=== PATIENT | female | born 1990 | race African-American/Black ===

== ENCOUNTER 2017-02-09 22:47 | Emergency (ER) | payer SELFPAY ==
[~2017-02-09] VITALS: Ht 160 cm; Wt 72.7 kg
[~2017-02-09 22:47] MED LIST: ALBU17AE27 IH
[2017-02-09] MEDS ORDERED: IPRATROPIUM BROMIDE 0.5 MG/2.5 ML NEB SOLUTION NEB ONE (23:00)
[2017-02-09] MEDS ORDERED: ALBUTEROL SULFATE 5 MG/ML 20 ML NEB SOLN [BULK] NEB ONE (23:00)
[2017-02-09] MEDS ORDERED: 0.9% SODIUM CHLORIDE 5 ML NEB SOLUTION NEB ONE (23:01)
[2017-02-09 23:26] VITALS: BP 122/89
[2017-02-09] MEDS ORDERED: PredniSONE 20 MG TABLET PO ONE (23:45)
[2017-02-10] MEDS ORDERED: ALBUTEROL SULFATE HFA 90 MCG/PUFF 8 GM INHALER IH ONE (00:15)
== END 2017-02-10 00:09 | disposition home or self-care (01) ==
LOC: EMS 22:49
DX: J45.901 Unspecified asthma with (acute) exacerbation (principal); F17.210 Nicotine dependence, cigarettes, uncomplicated; F15.90 Other stimulant use, unspecified, uncomplicated; Z88.1 Allergy status to other antibiotic agents
CPT/HCPCS: 94060; 94644; 99285; 99406; J7512; J7611; J3535